=== PATIENT | male | born 1980 | race Caucasian/White ===

== ENCOUNTER 2017-12-12 11:00 | Inpatient (IN) | payer OTHER ==
--- NOTE | 2017-12-12 11:19 | PDOC ---
History of Present Illness - General Stated Complaint: CHEST PAIN Time Seen by Provider: 12/12/17 11:08 History Source: Patient - History of Present Illness Presenting Symptoms: Chest Pain Past History - Past Medical History Allergies/Adverse Reactions: Allergies Allergy/AdvReac Type Severity Reaction Status Date / Time aspirin Allergy Verified 12/12/17 11:28 Review of Systems - Review of Systems Constitutional: No: Fever Respiratory: No: Cough, Shortness of Breath Cardiac (ROS): Yes: Chest Pain. No: Lightheadedness, Palpitations, Syncope *Physical Exam - Vital Signs Last Vital Signs Temp Pulse Resp BP Pulse Ox 97.8 F 77 16 153/72 99 12/12/17 13:47 12/12/17 13:47 12/12/17 13:47 12/12/17 13:47 12/12/17 13:47 - Physical Exam General Appearance: Yes: Appropriately Dressed. No: Apparent Distress HEENT: positive: Normal Voice Neck: positive: Supple Respiratory/Chest: positive: Lungs Clear, Normal Breath Sounds. negative: Respiratory Distress Cardiovascular: positive: Regular Rate, S1, S2 Gastrointestinal/Abdominal: positive: Soft. negative: Tender Extremity: positive: Normal Inspection. negative: Pedal Edema Integumentary: positive: Dry, Warm Neurologic: positive: Fully Oriented, Alert, Normal Mood/Affect ED Treatment Course - LABORATORY CBC & Chemistry Diagram: 12/12/17 11:42 12/12/17 12:52 - ADDITIONAL ORDERS Additional order review: Laboratory Results 12/12/17 12/12/17 12/12/17 12:52 11:42 11:42 Sodium 133 L Cancelled Potassium 7.0 H* Cancelled Chloride 101 Cancelled Carbon Dioxide 23 Cancelled Anion Gap 9 Cancelled BUN 91 H Cancelled Creatinine 11.1 H* Cancelled Creat Clearance w eGFR 5.17 Cancelled Random Glucose 217 H Cancelled Calcium 9.2 Cancelled Total Bilirubin 0.4 Cancelled AST 25 Cancelled ALT 71 H Cancelled Alkaline Phosphatase 76 Cancelled Creatine Kinase 114 Cancelled Troponin I < 0.02 Cancelled B-Natriuretic Peptide 7529.6 H Total Protein 7.7 Cancelled Albumin 3.9 Cancelled 12/12/17 11:42 RBC 3.90 L MCV 95.1 MCHC 34.1 RDW 13.9 MPV 10.7 Neutrophils % 68.0 Lymphocytes % 21.5 Monocytes % 5.5 Eosinophils % 4.3 Basophils % 0.7 - RADIOLOGY Radiology Studies Ordered: Category Date Time Status CHEST X-RAY PORTABLE* [RAD] Stat Radiology 12/12/17 11:14 Completed - Medications Given in the ED: ED Medications Discontinued Medications Generic Name Dose Route Start Last Admin Trade Name Freq PRN Reason Stop Dose Admin Albuterol Sulfate 1 amp 12/12/17 13:56 12/12/17 14:24 Ventolin 0.083% Nebulizer Soln - NEB 12/12/17 13:57 1 amp NOW ONE Administration Calcium Gluconate 1,000 mg 12/12/17 13:52 12/12/17 14:23 Calcium Gluconate 10% - IVPUSH 12/12/17 13:53 1,000 mg ONCE ONE Administration Calcium Gluconate 1,000 mg 12/12/17 13:55 12/12/17 14:23 Calcium Gluconate 10% - IVPUSH 12/12/17 13:56 Not Given ONCE ONE Dextrose 25 gm 12/12/17 13:56 12/12/17 14:23 D50w (Vial) - IVPUSH 12/12/17 13:57 25 gm NOW ONE Administration Insulin Human Regular 6 units 12/12/17 13:52 12/12/17 14:23 Novolin R Vial *For Ivpush Or Iv Drip Only* IVPUSH 12/12/17 13:53 6 units ONCE ONE Administration Insulin Human Regular 10 units 12/12/17 13:56 12/12/17 14:24 Novolin R Vial *For Ivpush Or Iv Drip Only* IVPUSH 12/12/17 13:57 Not Given ONCE ONE Sodium Bicarbonate 50 meq 12/12/17 14:00 12/12/17 14:24 Sodium Bicarbonate 8.4% - IVPUSH 12/12/17 14:01 50 meq ONCE ONE Administration Medical Decision Making - Medical Decision Making 12/12/17 11:14 37-year-old male, IDDM, 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 Patient states while waiting for dialysis this morning developed left-sided, non-radiating chest pain, unable to describe, 8/10, constant, worse w/ deep inspiration, since improved. Denies shortness of breath, diaphoresis, nausea, vomiting, palpitations, leg pain and swelling. Patient states he used to get this same pain "many times" in the past but had negative w/u including stress testing. States he has not had pain over the past 6-7 years. See exam CP Recurrent Neg w/u in past, including stress test, per pt Since improved Not great story for ACS, less likely PE or dissection, no infectious sxs -ekg -cxr -labs -m/l can be discharged after 2 trops -will arrange HD 12/12/17 11:29 EKG w/ isolated TWI in lead aVL per d/w Dr Gay. Agrees to rule out patient with 2 tropes. Will contact [facility] to arrange hemodialysis 12/12/17 11:44 12/12/17 14:03 1st troponin negative. K of 7. Discussed with Dr. Taveras of renal who was currently in ED, recommends hyper-K cocktail except for Kayexalate with plan to dialyze patient stat. I microblogged hospitalist to make team aware 12/12/17 14:26 Pt admitted to hospitalist *DC/Admit/Observation/Transfer Diagnosis at time of Disposition: ESRD (end stage renal disease), Atypical chest pain, Hyperkalemia - Discharge Dispostion Condition at time of disposition: Good Decision to Admit order: Yes Decision to Admit order Date/Time: Decision to Admit Order Category Date Time Status Decision to Admit to Hospital Routine Admission 12/12/17 14:25 Active - Referrals Referrals: David Sigala MD [Primary Care Provider] - - Patient Instructions - Post Discharge Activity
[2017-12-12 11:35] VITALS: BMI 34.9
--- NOTE | 2017-12-12 11:45 | EKG ---
Test Reason : Blood Pressure : / mmHG Vent. Rate : 079 BPM Atrial Rate : 079 BPM P-R Int : 164 ms QRS Dur : 118 ms QT Int : 386 ms P-R-T Axes : 038 014 065 degrees QTc Int : 442 ms NORMAL SINUS RHYTHM POSSIBLE LEFT ATRIAL ENLARGEMENT INCOMPLETE LEFT BUNDLE BRANCH BLOCK BORDERLINE ECG NO PREVIOUS ECGS AVAILABLE Confirmed by Geoffrey Carrasco MD ([id number]) on 12/12/2017 11:44:59 AM Referred By: Confirmed By:Geoffrey Carrasco MD
[2017-12-12 11:48] LABS: BASO % 0.7 % (0-2.0); EOS % 4.3 % (0-4.5); HEMATOCRIT 37.1 % (35.4-49); HEMOGLOBIN 12.6 GM/dL (11.7-16.9); LYMPH % 21.5 % (8-40); MCH 32.4 pg (25.7-33.7); MCHC 34.1 g/dl (32.0-35.9); MEAN CELL VOLUME 95.1 fl (80-96); MEAN PLT VOLUME 10.7 fl (7.5-11.1); MONO % 5.5 % (3.8-10.2); PLATELET COUNT 230 K/MM3 (134-434); RDW 13.9 % (11.9-15.9)
--- NOTE | 2017-12-12 11:48 | PDOC ---
*Physical Exam - Physical Exam Comments: 12/12/17 11:48 Vitals as noted Alert, no acute distress, speaking full sentences Left eye glaucoma Heart is regular, 2/6 systolic ejection murmur Lungs are clear Abdomen benign Neurologically intact Heart Score/ECG Review - History History: Slightly suspicious - Electrocardiogram EKG: Non specific repolarization disturbance - Age Age: </= 45 - Risk Factors Based on the list above the patient has:: 1-2 risk factors - Troponin Troponin: </= normal limit - Score Heart Score - Total: 2 #1 ECG reviewed & interpreted by me at: 11:22 General ECG Interpretation: Sinus Rhythm, Normal Rate (79), Normal Intervals ( qtc 442, qrs 118 - borderline nonspecific intraventricular conduction delay), No acute ischemic changes (isolated TWI AVL) ED Treatment Course - LABORATORY CBC & Chemistry Diagram: 12/12/17 11:42 12/12/17 11:42 Medical Decision Making - Medical Decision Making 12/12/17 11:49 37-year-old male [facility] resident with end-stage renal disease on Monday//Monday dialysis presents for evaluation of chest pain at rest before dialysis this morning. Patient was in his usual state of health, while seated developed sudden onset of sharp left-sided chest pain that lasted for about an hour and then resolved, not associated with any palpitations or difficulty breathing. The long-term staff evaluated him and then referred him to the emergency department. He has had very similar episodes in the past, had negative workup including cardiac stress test. At baseline, he is physically active and ambulates comfortably throughout the long-term daily without chest pain or dyspnea. Atypical chest pain in a 37-year-old male with end-stage renal disease. Low risk heart score, EKG is not acutely ischemic, will check labs including troponin 2 Discuss with [facility] regarding rescheduling his dialysis, could return to [facility] if troponin negative 2 and remains asymptomatic. *DC/Admit/Observation/Transfer Diagnosis at time of Disposition: ESRD (end stage renal disease), Atypical chest pain - Discharge Dispostion Condition at time of disposition: Good - Referrals Referrals: David Sigala MD [Primary Care Provider] - - Patient Instructions - Post Discharge Activity
[2017-12-12 13:29] LABS: ALBUMIN 3.9 g/dl (3.4-5.0); ALK PHOS 76 U/L (45-117); ANION GAP 9 MMOL/L (8-16); BILIRUBIN,TOTAL 0.4 mg/dL (0.2-1); BLOOD UREA NITROGEN 91 mg/dL (7-18); CALCIUM 9.2 mg/dL (8.5-10.1); CHLORIDE 101 mmol/L (98-107); CO2 23 mmol/L (21-32); GLUCOSE,RANDOM 217 mg/dL (74-106); SGOT/AST 25 U/L (15-37); SGPT/ALT 71 U/L (13-61); SODIUM 133 mmol/L (136-145); TOT PROT 7.7 g/dl (6.4-8.2)
[2017-12-12 13:47] LABS: CREATININE 11.1 mg/dL (0.55-1.3)
[2017-12-12] MEDS ORDERED: CALCIUM GLUCONATE 10% - 1,000 MG/10 ML VIAL IVPUSH ONE ×2 (13:52→13:55)
[2017-12-12] MEDS ORDERED: INSULIN REGULAR HUMAN 100 UNITS/ML *VIAL IVPUSH ONE ×2 (13:52→13:56)
[2017-12-12] MEDS ORDERED: ALBUTEROL SO4 0.083% IH SOL 2.5 MG/3 ML VIAL.NEB. NEB ONE ×2 (13:56→14:02)
[2017-12-12] MEDS ORDERED: DEXTROSE 50%-WATER - 25 GM/50 ML VIAL IVPUSH ONE (13:56)
[2017-12-12] MEDS ORDERED: SODIUM BICARBONATE 8.4% 50 MEQ/50 ML DISP.SYRIN IVPUSH ONE (14:00)
[2017-12-12] MEDS ORDERED: SODIUM BICARBONATE 8.4% 50 MEQ/50 ML VIAL ONE (14:03)
[2017-12-12] MEDS ORDERED: CALCIUM GLUCONATE 10% - 1,000 MG/10 ML VIAL ONE (14:03)
[2017-12-12] MEDS ORDERED: DEXTROSE 50%-WATER 25 GM/50 ML DISP.SYRIN ONE (14:03)
[2017-12-12] MEDS ORDERED: INSULIN REGULAR HUMAN 100 UNITS/ML *VIAL ONE (14:04)
--- NOTE | 2017-12-12 14:16 | HP ---
<Florencio Briseno - Last Filed: 12/12/17 16:05> CHIEF COMPLAINT:Chest Pain HISTORY OF PRESENT ILLNESS: 37M with history of HTN, DM, ESRD on HD T//Mon, left eye blindness, presents to the ER from detention with chest pain. Patient states he was in the waiting room about to get dialysis and he was talking to the at risk specialist about his hyperkalemia and all of a sudden he started having left sided chest pain. He endorses the pain did not radiate anywhere and he was not diaphoretic. He states it is worse when he takes a deep breath and at the peak of inspiration. Endorses he used to have pain like this but its been many years since he's had chest pain like this. He states he had a work up with a stress test about 8 years ago and it was a negative work up. Patient's mother of an KS at 39 years old. He denies nausea vomiting fever chills or shortness of breath. Currently endorses CP only at the peak of inspiration. Noted to have potassium of 7 in ER and nephrology, Dr. Taversa, Consulted. Paatient to get emergent dialysis. ER course was notable for: (1)Labs (2)CXR (3)Hyperkalemia cocktail nephrology consult Recent Travel:Denies PAST MEDICAL HISTORY:As above, Left eye retinal detachment, right eye retinal hemorrhages from DM, Congential murmur, ?cardiomyopathy PAST SURGICAL HISTORY:Right arm AV fistula, multiple eye procedures Social History: Smoking:Denies Alcohol:Denies Drugs: Denies Family History:Mother of [place] at age 39 Allergies aspirin Allergy (Verified 12/12/17 11:28) Home Medication List Medication Instructions Recorded Confirmed Type Acetaminophen [Tylenol] 650 mg PO Q6H PRN 12/12/17 12/12/17 History Amlodipine Besylate 10 mg PO DAILY 12/12/17 12/12/17 History Brimonidine Tartrate [Alphagan 1 drop OD TID 12/12/17 12/12/17 History 0.2% -] Calcium Acetate 1 cap PO TID 12/12/17 12/12/17 History Gabapentin 1 cap PO HS 12/12/17 12/12/17 History Hydralazine HCl 20 mg PO Q8H 12/12/17 12/12/17 History Insulin Lispro [Humalog] See Protocol SQ BID 12/12/17 12/12/17 History Latanoprost 0.005% Eye Drops 1 drop OD HS 12/12/17 12/12/17 History [Xalatan 0.005% Eye Drops -] Lisinopril 5 mg PO DAILY 12/12/17 12/12/17 History Polyvinyl Alcohol [Artificial 1 drop OS TID 12/12/17 12/12/17 History Tears] Sertraline HCl 25 mg PO DAILY 12/12/17 12/12/17 History Vitamin B Comp W-C [Nephro-Gracie -] 1 tab PO DAILY 12/12/17 12/12/17 History Active Medications Generic Name Dose Route Start Last Admin Trade Name Freq PRN Reason Stop Dose Admin Amlodipine Besylate 10 mg 12/13/17 10:00 Norvasc - PO DAILY FOR[facility]LY [facility], [facility]–1983 Artificial Tears 1 drop 12/12/17 22:00 Artificial Tears OS TID [facility], [facility]1983 Brimonidine Tartrate 1 drop 12/12/17 22:00 Alphagan 0.2% - OD TID [facility], [facility]1983 Calcium Acetate mg 12/12/17 22:00 Phoslo - PO TID GHAZALA Gabapentin mg 12/12/17 22:00 Neurontin - PO HS [facility], 1928–1983 Heparin Sodium (Porcine) 5,000 unit 12/12/17 18:00 Heparin - SQ Q8H-IV [facility], [facility]1983 Hydralazine HCl 20 mg 12/12/17 15:30 Apresoline - PO Q8H [facility], [facility]1983 Insulin Aspart 1 vial 12/12/17 16:30 Novolog Vial Sliding Scale - SQ TIDAC [facility], [facility]1983 Protocol Latanoprost 1 drop 12/12/17 22:00 Xalatan 0.005% Eye Drops - OD HS [facility], [facility]1983 Lisinopril 5 mg 12/13/17 10:00 Prinivil PO DAILY [facility], [facility]1983 Multivit/Ca Carb/B Cmplx/FA/Prenat 1 tablet 12/13/17 10:00 Nephro-Gracie - PO DAILY [facility], [facility]1983 Sertraline HCl 25 mg 12/13/17 10:00 Zoloft - PO DAILY [facility] HOME MEDICATIONS: REVIEW OF SYSTEMS CONSTITUTIONAL: Absent: fever, chills, diaphoresis, generalized weakness, malaise, loss of appetite, weight change HEENT: Absent: rhinorrhea, nasal congestion, throat pain, throat swelling, difficulty swallowing, mouth swelling, ear pain, eye pain, visual changes CARDIOVASCULAR: Absent: syncope, palpitations, irregular heart rate, lightheadedness, peripheral edema Present:chest pain, shortness of breath RESPIRATORY: Absent: cough, dyspnea with exertion, orthopnea, wheezing, stridor, hemoptysis Present:shortness of breath GASTROINTESTINAL: Absent: abdominal pain, abdominal distension, nausea, vomiting, diarrhea, constipation, melena, hematochezia GENITOURINARY: Absent: dysuria, frequency, urgency, hesitancy, hematuria, flank pain, genital pain MUSCULOSKELETAL: Absent: myalgia, arthralgia, joint swelling, back pain, neck pain SKIN: Absent: rash, itching, pallor HEMATOLOGIC/IMMUNOLOGIC: Absent: easy bleeding, easy bruising, lymphadenopathy, frequent infections ENDOCRINE: Absent: unexplained weight gain, unexplained weight loss, heat intolerance, cold intolerance NEUROLOGIC: Absent: headache, focal weakness or paresthesias, dizziness, unsteady gait, seizure, mental status changes, bladder or bowel incontinence PSYCHIATRIC: Absent: anxiety, depression, suicidal or homicidal ideation, hallucinations. PHYSICAL EXAMINATION Vital Signs - 24 hr 12/12/17 12/12/17 12/12/17 11:28 11:53 13:47 Temperature 98.1 F 97.8 F Pulse Rate 79 80 Pulse Rate [ 77 Apical] Respiratory 18 16 Rate Blood Pressure 164/85 Blood Pressure 153/72 [Left Arm] O2 Sat by Pulse 98 99 99 Oximetry (%) GENERAL: Awake, alert, and fully oriented, in no acute distress. HEAD: Normal with no signs of trauma. EYES: difficult to visualize optic discs bilaterally EARS, NOSE, THROAT: Moist mucous membranes. NECK: supple without JVD LUNGS: Breath sounds equal, clear to auscultation bilaterally. No wheezes, and no crackles. No accessory muscle use. HEART: Tachycardic, 3/6 systolic murmur best heard at RUSB with radiation to carotids. ABDOMEN: Soft, nontender, not distended, normoactive bowel sounds MUSCULOSKELETAL: Normal range of motion at all joints. No CVA tenderness. UPPER EXTREMITIES: 2+ pulses, warm, well-perfused. No cyanosis. No clubbing. No peripheral edema. LOWER EXTREMITIES: warm, well-perfused. No calf tenderness. No peripheral edema. NEUROLOGICAL: Cranial nerves II-XII grossly intact. global muscle strength 5/ 5. Sensation intact. PSYCHIATRIC: Cooperative. Good eye contact. Appropriate mood and affect. SKIN: Warm, dry, normal turgor Laboratory Results - last 24 hr 12/12/17 12/12/17 12/12/17 11:42 11:42 11:42 WBC 5.0 RBC 3.90 L Hgb 12.6 Hct 37.1 MCV 95.1 MCH 32.4 MCHC 34.1 RDW 13.9 Plt Count 230 MPV 10.7 Absolute Neuts (auto) 3.4 Neutrophils % 68.0 Lymphocytes % 21.5 Monocytes % 5.5 Eosinophils % 4.3 Basophils % 0.7 Nucleated RBC % 0 Platelet Comment No clumping noted Sodium Cancelled Potassium Cancelled Chloride Cancelled Carbon Dioxide Cancelled Anion Gap Cancelled BUN Cancelled Creatinine Cancelled Creat Clearance w eGFR Cancelled Random Glucose Cancelled Calcium Cancelled Total Bilirubin Cancelled AST Cancelled ALT Cancelled Alkaline Phosphatase Cancelled Creatine Kinase Cancelled Troponin I Cancelled B-Natriuretic Peptide 7529.6 H Total Protein Cancelled Albumin Cancelled 12/12/17 12:52 WBC RBC Hgb Hct MCV MCH MCHC RDW Plt Count MPV Absolute Neuts (auto) Neutrophils % Lymphocytes % Monocytes % Eosinophils % Basophils % Nucleated RBC % Platelet Comment Sodium 133 L Potassium 7.0 H* Chloride 101 Carbon Dioxide 23 Anion Gap 9 BUN 91 H Creatinine 11.1 H* Creat Clearance w eGFR 5.17 Random Glucose 217 H Calcium 9.2 Total Bilirubin 0.4 AST 25 ALT 71 H Alkaline Phosphatase 76 Creatine Kinase 114 Troponin I < 0.02 B-Natriuretic Peptide Total Protein 7.7 Albumin 3.9 EKG: NSR inverted T wave in aVL no prior EKG available for comparison CXR: Water bottle shaped heart. No acute pathology ASSESSMENT/PLAN: 37M with multiple medical problems presents with chest pain and hyperkalemia: Hyperkalemia: Patient states he has not changed his diet Given Cocktail for hyperkalemia in ER Not given Kayexolate per nephrology Will get dialysis repeat BMP in AM ESRD: Renally dose all meds Nephrology consult emergency dialysis now Chest pain: R/o ACS Low suspicion for ACS but patient has risk factors and concenring history given early cardiac in his mom at 37yo Justa Scan Trend toponins continuos cardiac monitoring Echo Lipid panel Systolic Murmur: Echo ordered DM: BGM ACHS ISS TIDAC Check HbA1c HTN: Restart home dose of lisinopril 5mg po daily restart hydralazine 20mg po q8h Restart Norvasc 10mg po daily FEN: no IVF Hyperkalemia: See plan above diabetic diet PPx: HSQ/SCDs Early ambulation to avoid deconditioning Full Code Case discussed with Dr. Bhagat Visit type - Emergency Visit Emergency Visit: Yes ED Registration Date: 12/12/17 Care time: The patient presented to the Emergency Department on the above date and was hospitalized for further evaluation of their emergent condition. - New Patient This patient is new to me today: Yes Date on this admission: 12/12/17 - Critical Care Critical Care patient: No <Abram Bhagat - Last Filed: 12/12/17 18:00> CHIEF COMPLAINT: PCP: HISTORY OF PRESENT ILLNESS: ER course was notable for: (1) (2) (3) Recent Travel: PAST MEDICAL HISTORY: PAST SURGICAL HISTORY: Social History: Smoking: Alcohol: Drugs: Family History: Allergies aspirin Allergy (Verified 12/12/17 11:28) HOME MEDICATIONS: Home Medications Medication Instructions Recorded Acetaminophen [Tylenol] 650 mg PO Q6H PRN 12/12/17 Amlodipine Besylate 10 mg PO DAILY 12/12/17 Brimonidine Tartrate [Alphagan 1 drop OD TID 12/12/17 0.2% -] Calcium Acetate 1 cap PO TID 12/12/17 Gabapentin 1 cap PO HS 12/12/17 Hydralazine HCl 20 mg PO Q8H 12/12/17 Insulin Lispro [Humalog] See Protocol SQ BID 12/12/17 Latanoprost 0.005% Eye Drops 1 drop OD HS 12/12/17 [Xalatan 0.005% Eye Drops -] Lisinopril 5 mg PO DAILY 12/12/17 Polyvinyl Alcohol [Artificial 1 drop OS TID 12/12/17 Tears] Sertraline HCl 25 mg PO DAILY 12/12/17 Vitamin B Comp W-C [Nephro-Gracie -] 1 tab PO DAILY 12/12/17 REVIEW OF SYSTEMS CONSTITUTIONAL: Absent: fever, chills, diaphoresis, generalized weakness, malaise, loss of appetite, weight change HEENT: Absent: rhinorrhea, nasal congestion, throat pain, throat swelling, difficulty swallowing, mouth swelling, ear pain, eye pain, visual changes CARDIOVASCULAR: Absent: chest pain, syncope, palpitations, irregular heart rate, lightheadedness , peripheral edema RESPIRATORY: Absent: cough, shortness of breath, dyspnea with exertion, orthopnea, wheezing, stridor, hemoptysis GASTROINTESTINAL: Absent: abdominal pain, abdominal distension, nausea, vomiting, diarrhea, constipation, melena, hematochezia GENITOURINARY: Absent: dysuria, frequency, urgency, hesitancy, hematuria, flank pain, genital pain MUSCULOSKELETAL: Absent: myalgia, arthralgia, joint swelling, back pain, neck pain SKIN: Absent: rash, itching, pallor HEMATOLOGIC/IMMUNOLOGIC: Absent: easy bleeding, easy bruising, lymphadenopathy, frequent infections ENDOCRINE: Absent: unexplained weight gain, unexplained weight loss, heat intolerance, cold intolerance NEUROLOGIC: Absent: headache, focal weakness or paresthesias, dizziness, unsteady gait, seizure, mental status changes, bladder or bowel incontinence PSYCHIATRIC: Absent: anxiety, depression, suicidal or homicidal ideation, hallucinations. PHYSICAL EXAMINATION Vital Signs - 24 hr 12/12/17 12/12/17 12/12/17 11:28 11:53 13:47 Temperature 98.1 F 97.8 F Pulse Rate 79 80 Pulse Rate [ 77 Apical] Respiratory 18 16 Rate Blood Pressure 164/85 Blood Pressure 153/72 [Left Arm] O2 Sat by Pulse 98 99 99 Oximetry (%) 12/12/17 15:46 Temperature 98.5 F Pulse Rate Pulse Rate [ 104 H Apical] Respiratory 16 Rate Blood Pressure Blood Pressure 146/66 [Left Arm] O2 Sat by Pulse 99 Oximetry (%) GENERAL: Awake, alert, and fully oriented, in no acute distress. HEAD: Normal with no signs of trauma. EYES: Pupils equal, round and reactive to light, extraocular movements intact, sclera anicteric, conjunctiva clear. No lid lag. EARS, NOSE, THROAT: Ears normal, nares patent, oropharynx clear without exudates. Moist mucous membranes. NECK: Normal range of motion, supple without lymphadenopathy, JVD, or masses. LUNGS: Breath sounds equal, clear to auscultation bilaterally. No wheezes, and no crackles. No accessory muscle use. HEART: Regular rate and rhythm, normal S1 and S2 without murmur, rub or gallop. ABDOMEN: Soft, nontender, not distended, normoactive bowel sounds, no guarding, no rebound, no masses. No hepatomegaly or splenomegaly. MUSCULOSKELETAL: Normal range of motion at all joints. No bony deformities or tenderness. No CVA tenderness. UPPER EXTREMITIES: 2+ pulses, warm, well-perfused. No cyanosis. No clubbing. No peripheral edema. LOWER EXTREMITIES: 2+ pulses, warm, well-perfused. No calf tenderness. No peripheral edema. NEUROLOGICAL: Cranial nerves II-XII intact. Normal speech. Normal gait. PSYCHIATRIC: Cooperative. Good eye contact. Appropriate mood and affect. SKIN: Warm, dry, normal turgor, no rashes or lesions noted, normal capillary refill. Laboratory Results - last 24 hr 12/12/17 12/12/17 12/12/17 11:42 11:42 11:42 WBC 5.0 RBC 3.90 L Hgb 12.6 Hct 37.1 MCV 95.1 MCH 32.4 MCHC 34.1 RDW 13.9 Plt Count 230 MPV 10.7 Absolute Neuts (auto) 3.4 Neutrophils % 68.0 Lymphocytes % 21.5 Monocytes % 5.5 Eosinophils % 4.3 Basophils % 0.7 Nucleated RBC % 0 Platelet Comment No clumping noted Sodium Cancelled Potassium Cancelled Chloride Cancelled Carbon Dioxide Cancelled Anion Gap Cancelled BUN Cancelled Creatinine Cancelled Creat Clearance w eGFR Cancelled Random Glucose Cancelled Calcium Cancelled Total Bilirubin Cancelled AST Cancelled ALT Cancelled Alkaline Phosphatase Cancelled Creatine Kinase Cancelled Troponin I Cancelled B-Natriuretic Peptide 7529.6 H Total Protein Cancelled Albumin Cancelled 12/12/17 12:52 WBC RBC Hgb Hct MCV MCH MCHC RDW Plt Count MPV Absolute Neuts (auto) Neutrophils % Lymphocytes % Monocytes % Eosinophils % Basophils % Nucleated RBC % Platelet Comment Sodium 133 L Potassium 7.0 H* Chloride 101 Carbon Dioxide 23 Anion Gap 9 BUN 91 H Creatinine 11.1 H* Creat Clearance w eGFR 5.17 Random Glucose 217 H Calcium 9.2 Total Bilirubin 0.4 AST 25 ALT 71 H Alkaline Phosphatase 76 Creatine Kinase 114 Troponin I < 0.02 B-Natriuretic Peptide Total Protein 7.7 Albumin 3.9 ASSESSMENT/PLAN: Seen and examined with resident; please see my note for additional documentation
--- NOTE | 2017-12-12 14:59 | PN ---
Teaching Attending Note Name of Resident: Florencio Briseno ATTENDING PHYSICIAN STATEMENT I saw and evaluated the patient. I reviewed the resident's note and discussed the case with the resident. I agree with the resident's findings and plan as documented. SUBJECTIVE: Pt. is a 37 y/o HM with a PMH as documented; he presents to the ER with a CC of chest pain and anxiety at his HD center. He hasn't had CP like this 'for years, ' though he has had similar pain 8 years ago when he had a negative CV workup ( states had stress, etc. at that juncture). Unsure of last echocardiogram date. He has multiple RFs for CV disease including ESRD, DM, HTN, obesity, family h/o premature CV (mother of ND at 39 y/o). He was aparently hyperkalemic at HD but that value is unknown; he had a K of 7 here. Was given protocol in the ER. He had no associated EKG changes. Globular heart on CXR. Nephrology consulted by ER for STAT HD. He will be admitted to the medicine service with nephro consultation for stat HD ROS: 10 sys ROS done and was negative aside from what was indicated above PMH: As documented, but briefly ESRD, IDDM II, HTN, Blindness PSH: Fistula insertion, no thoracic procedures SOC: NH resident, compliant with HD OBJECTIVE: Gen: AAOx3, well nourshed CV: Slightly tachy, III/IV systolic murmur heard at b/l SB, good capilary refill. No JVD. Lungs: CTAB with sym expansion GI: Soft, nondistended, nontender, no HSM Psych: slightly anxious affect with normal cognition and moderate insight. Competent to make medical decisions Neuro: CN2-12 grossly intact, moves all 4 extremities without distortion to sensorium. Ext: No edema, scattered tattoos, LUE AVF with good thrill. ASSESSMENT AND PLAN: 1) Hyperkalemia -2/2 ESRD, no diet changes, etc. He will have stat HD and we will trend potassium. -Defer further management to nephrology; appreciate input. 2) Chest Pain -Given risk factors, etc. will go ahead and obtain Nuclear stress test ( blindness, etc. makes treadmill poor option). ASA allergy should be explored. We will go ahead and consult CV if needed. Trend trops, monitor tele. HEART score is 4 putting him at moderate risk (MACE risk 12-16.6%) with last CV workup nearly 10 years ago. 3) Anxiety -Recommend outpatient FU 4) IDDM -SSI while inpatient -Close followup with PCP to taper home regimine 5) HTN -Keep <160 SBP while inpatient; continue home meds and use PRNs 6) ESRD -Cause of Hyperkalemia; managed by nephrology -Monitor weights, BMP Full Code DVT px heparin GI px: not indicated' Anticipated DC pending on results of stress test and satisfactory resolution of hyperkalemia.
[2017-12-12] MEDS ORDERED: HEPARIN NA (PORCINE) 5,000 UNITS/ML 1ML VIAL IVPUSH ONE (15:54)
[2017-12-12] MEDS ORDERED: SODIUM CHLORIDE 250 ML IV PRN (15:54)
--- NOTE | 2017-12-12 15:54 | CONSULT ---
Consult Consult Specialty:: Nephrology Reason for Consultation:: ESRD - History of Present Illness Chief Complaint: chest pain History of Present Illness: Pt is a 37 year old male with pmhx of ESRD, DM, left eye blindness, and heart murmur who presents to the ER with chest pain. He says pain was left sided. He currently denies pain. The pain however is reproducible with palpation. He is on a TTS scheduled and is due for HD today. He did not get dialysis. He was found to be hyperkalemic. He denies palpitations. He says that he has history of hyperkalemia. He gets HD at [facility]. - History Source History Provided By: Patient - Past Medical History Cardio/Vascular: Yes: HTN Renal/: Yes: Renal Failure, Renal Inusuff, Hemodialysis Endocrine: Yes: Diabetes Mellitus - Past Surgical History Past Surgical History: Yes: AV Fistula/Graft - Alcohol/Substance Use Hx Alcohol Use: No - Smoking History Smoking history: Never smoked Home Medications - Allergies Allergies/Adverse Reactions: Allergies Allergy/AdvReac Type Severity Reaction Status Date / Time aspirin Allergy Verified 12/12/17 11:28 - Home Medications Home Medications: Ambulatory Orders Acetaminophen [Tylenol] 650 mg PO Q6H PRN 12/12/17 Amlodipine Besylate 10 mg PO DAILY 12/12/17 Brimonidine Tartrate [Alphagan 0.2% -] 1 drop OD TID 12/12/17 Calcium Acetate 1 cap PO TID 12/12/17 Gabapentin 1 cap PO HS 12/12/17 Hydralazine HCl 20 mg PO Q8H 12/12/17 Insulin Lispro [Humalog] See Protocol SQ BID 12/12/17 Latanoprost 0.005% Eye Drops [Xalatan 0.005% Eye Drops -] 1 drop OD HS 12/12/17 Lisinopril 5 mg PO DAILY 12/12/17 Polyvinyl Alcohol [Artificial Tears] 1 drop OS TID 12/12/17 Sertraline HCl 25 mg PO DAILY 12/12/17 Vitamin B Comp W-C [Nephro-Gracie -] 1 tab PO DAILY 12/12/17 Family Disease History - Family Disease History Other Family History: family hx of DM Review of Systems - Review of Systems Constitutional: reports: No Symptoms Eyes: reports: No Symptoms HENT: reports: No Symptoms Neck: reports: No Symptoms Cardiovascular: reports: Chest Pain Respiratory: reports: No Symptoms Gastrointestinal: reports: No Symptoms Genitourinary: reports: No Symptoms Musculoskeletal: reports: No Symptoms Integumentary: reports: No Symptoms Neurological: reports: No Symptoms Endocrine: reports: No Symptoms Hematology/Lymphatic: reports: No Symptoms Psychiatric: reports: No Symptoms Physical Exam Vital Signs: Vital Signs Temperature 98.5 F 12/12/17 15:46 Pulse Rate 104 H 12/12/17 15:46 Respiratory Rate 16 12/12/17 15:46 Blood Pressure 146/66 12/12/17 15:46 O2 Sat by Pulse Oximetry (%) 99 12/12/17 15:46 Constitutional: Yes: Calm Eyes: Yes: Other (left eye blind) Cardiovascular: Yes: S1, S2, Other (pain on palpation of anterior chest wall) Respiratory: Yes: CTA Bilaterally Gastrointestinal: Yes: Soft Renal/: Yes: WNL Musculoskeletal: Yes: WNL Edema: No Integumentary: Yes: Tattoos Neurological: Yes: Oriented Psychiatric: Yes: Oriented Labs: CBC, BMP 12/12/17 11:42 12/12/17 12:52 Laboratory Tests 12/12/17 12/12/17 12/12/17 11:42 11:42 12:52 WBC 5.0 Hgb 12.6 Sodium 133 L Potassium 7.0 H* Chloride 101 BUN 91 H Creatinine 11.1 H* B-Natriuretic Peptide 7529.6 H Imaging - Results Chest X-ray: Report Reviewed Problem List - Problems (1) Atypical chest pain Code(s): R07.89 - OTHER CHEST PAIN (2) Diabetes Code(s): E11.9 - TYPE 2 DIABETES MELLITUS WITHOUT COMPLICATIONS (3) ESRD (end stage renal disease) Code(s): N18.6 - END STAGE RENAL DISEASE (4) HTN (hypertension) Code(s): I10 - ESSENTIAL (PRIMARY) HYPERTENSION (5) Hyperkalemia Code(s): E87.5 - HYPERKALEMIA Assessment/Plan Current Medications Generic Name Dose Route Start Last Admin Trade Name Freq PRN Reason Stop Dose Admin Amlodipine Besylate 10 mg 12/13/17 10:00 Norvasc - PO DAILY GHAZALA Artificial Tears 1 drop 12/12/17 22:00 Artificial Tears OS TID GHAZALA Brimonidine Tartrate 1 drop 12/12/17 22:00 Alphagan 0.2% - OD TID GHAZALA Calcium Acetate mg 12/12/17 22:00 Phoslo - PO TID GHAZALA Gabapentin mg 12/12/17 22:00 Neurontin - PO HS [facility] Heparin Sodium (Porcine) 5,000 unit 12/12/17 18:00 Heparin - SQ Q8H-IV GHAZALA Hydralazine HCl 20 mg 12/12/17 15:30 Apresoline - PO Q8H [facility] Insulin Aspart 1 vial 12/12/17 16:30 Novolog Vial Sliding Scale - SQ TIDAC [facility] Protocol Latanoprost 1 drop 12/12/17 22:00 Xalatan 0.005% Eye Drops - OD HS [facility] Lisinopril 5 mg 12/13/17 10:00 Prinivil PO DAILY [facility] Multivit/Ca Carb/B Cmplx/FA/Prenat 1 tablet 12/13/17 10:00 Nephro-Gracie - PO DAILY [facility] Sertraline HCl 25 mg 12/13/17 10:00 Zoloft - PO DAILY [facility] Impression 1. ESRD 2. hyperkalemia 3. DM 4. HTN 5. chest pain 6. left eye blindness Plan - will arrange for HD for hyperkalemia, pending placement in tele bed - insulin, d50, calcium gluconate and albuterol given - renal diet - resume home meds - cardiac workup - discussed with ER and with primary team - will follow Dr Taveras
[2017-12-12] MEDS: HEPARIN NA (PORCINE) 5,000 UNITS/ML 1ML VIAL IVPUSH SCH ×2 (18:25)
[2017-12-12] MEDS: hydrALAZINE HCL 10 MG TABLET PO SCH ×2 (18:31→22:13)
[2017-12-12] MEDS: INSULIN SLIDING SCALE (NOVOLOG) 1 VIAL SQ SCH (18:34)
[2017-12-12] MEDS: CALCIUM ACETATE 667 MG CAPSULE (FP) PO SCH (18:35)
[2017-12-12 20:14] LABS: ANION GAP 13 MMOL/L (8-16); BLOOD UREA NITROGEN 58 mg/dL (7-18); CALCIUM 9.3 mg/dL (8.5-10.1); CHLORIDE 106 mmol/L (98-107); CO2 24 mmol/L (21-32); GLUCOSE,RANDOM 256 mg/dL (74-106); POTASSIUM 4.2 mmol/L (3.5-5.1); SODIUM 143 mmol/L (136-145)
[2017-12-12 20:21] LABS: CREATININE 7.6 mg/dL (0.55-1.3)
--- NOTE | 2017-12-12 21:52 | PN ---
Progress Note (short form) - Note Progress Note: Laboratory Tests 12/12/17 18:00 Sodium 143 Potassium 4.2 Anion Gap 13 Creatinine 7.6 H* Post HD potassium improved. Problem List - Problems (1) Atypical chest pain Code(s): R07.89 - OTHER CHEST PAIN (2) Diabetes Code(s): E11.9 - TYPE 2 DIABETES MELLITUS WITHOUT COMPLICATIONS (3) ESRD (end stage renal disease) Code(s): N18.6 - END STAGE RENAL DISEASE (4) HTN (hypertension) Code(s): I10 - ESSENTIAL (PRIMARY) HYPERTENSION (5) Hyperkalemia Code(s): E87.5 - HYPERKALEMIA
[2017-12-12] MEDS: BRIMONIDINE TARTRATE 0.2% OPHTHALMIC 5 ML BOTTLE OD SCH (21:55)
[2017-12-12] MEDS: ARTIFICIAL TEARS (POLYVINYL ALCOHOL) OPTH DROPS OS SCH (21:55)
[2017-12-12] MEDS: HEPARIN NA (PORCINE) 5,000 UNITS/ML 1ML VIAL SQ SCH (22:13)
[2017-12-12] MEDS: LATANOPROST 0.005% OPHTH SOLN 2.5ML BOTTLE OD SCH (22:13)
[2017-12-12] MEDS: GABAPENTIN 300 MG CAPSULE (FP) PO SCH (22:13)
[2017-12-13] MEDS: BRIMONIDINE TARTRATE 0.2% OPHTHALMIC 5 ML BOTTLE OD SCH ×3 (05:42→21:37)
[2017-12-13] MEDS: HEPARIN NA (PORCINE) 5,000 UNITS/ML 1ML VIAL SQ SCH ×3 (05:42→21:38)
[2017-12-13] MEDS: ARTIFICIAL TEARS (POLYVINYL ALCOHOL) OPTH DROPS OS SCH ×3 (05:42→21:38)
[2017-12-13] MEDS: hydrALAZINE HCL 10 MG TABLET PO SCH ×3 (05:42→21:38)
[2017-12-13] MEDS: INSULIN SLIDING SCALE (NOVOLOG) 1 VIAL SQ SCH ×3 (06:13→18:08)
[2017-12-13 06:51] LABS: HEMATOCRIT 32.6 % (35.4-49); MCH 32.1 pg (25.7-33.7); MCHC 33.9 g/dl (32.0-35.9); MEAN CELL VOLUME 94.8 fl (80-96); MEAN PLT VOLUME 8.9 fl (7.5-11.1); PLATELET COUNT 145 K/MM3 (134-434); RBC 3.43 M/mm3 (4.00-5.60); RDW 14.1 % (11.9-15.9)
[2017-12-13 08:53] LABS: ANION GAP 8 MMOL/L (8-16); BLOOD UREA NITROGEN 44 mg/dL (7-18); CALCIUM 8.6 mg/dL (8.5-10.1); CHLORIDE 104 mmol/L (98-107); CHOLESTEROL 137 mg/dL (50-200); CO2 31 mmol/L (21-32); CREATININE 7.3 mg/dL (0.55-1.3); GLUCOSE,RANDOM 149 mg/dL (74-106); HDL CHOLESTEROL 40 mg/dL (40-60); MAGNESIUM 2.2 mg/dL (1.8-2.4); PHOSPHOROUS 4.4 mg/dL (2.5-4.9); POTASSIUM 4.9 mmol/L (3.5-5.1); SODIUM 144 mmol/L (136-145); TRIGLYCERIDES 98 mg/dL (0-150)
--- NOTE | 2017-12-13 10:07 | ECHO ---
Version: 1 Name: NERISSA CHILDERS Exam: Adult Echocardiogram Study Date: 12/13/2017, 7:21 AM Age: 37 Years MMode/2D Measurements & Calculations IVSd: 1.39 cm LVIDs: 3.4 cm LVIDd: 5.3 cm LVPWd: 1.76 cm LAV (MOD-bp): 70.0 ml Ao root diam: 3.0 cm LA dimension: 4.3 cm Doppler Measurements & Calculations MV E max grant: 146.0 cm/sec Med E/e': 26.3 MV A max grant: 74.7 cm/sec Med Peak E' Grant: 5.5 cm/sec MV E/A: 1.96 Lat E/e': 22.0 Lat Peak E' Grant: 6.6 cm/sec MR max P.0 mmHg AI P1/2t: 337.0 msec TR max grant: 254.4 cm/sec TR max P.3 mmHg Procedure A two-dimensional transthoracic echocardiogram with color flow and Doppler was performed. Left Ventricle There is moderate concentric left ventricular hypertrophy. The left ventricular ejection fraction is normal. The left ventricular wall motion is normal. Right Ventricle The right ventricle is normal in size and function. Atria The left atrium is moderately dilated. The right atrium is moderately dilated. Mitral Valve There is mild mitral valve thickening. There is no mitral valve stenosis. There is moderate to sever e mitral regurgitation. Tricuspid Valve There is mild tricuspid valve thickening. There is no tricuspid stenosis. There is moderate tricuspi d regurgitation. Right ventricular systolic pressure is elevated at 30-40mmHg. Aortic Valve The aortic valve is normal in structure and function. No hemodynamically significant valvular aortic stenosis. Mild to moderate aortic regurgitation. Pulmonic Valve The pulmonic valve is not well visualized. There is no pulmonic valvular stenosis. Mild pulmonic stella vular regurgitation. Pericardium/Pleura There is no pericardial effusion. Summary Statements There is moderate concentric left ventricular hypertrophy. The left ventricular ejection fraction is normal. The left ventricular wall motion is normal. There is mild mitral valve thickening. There is moderate to severe mitral regurgitation. The left atrium is moderately dilated. The right atrium is moderately dilated. There is moderate tricuspid regurgitation. Mild to moderate aortic regurgitation. Right ventricular systolic pressure is elevated at 30-40mmHg. MD Cullen Flores 12/13/2017, 10:07 AM Ordering Physician: Florencio Briseno Referring Physician: Min Camacho Performed By: Rebecca Vang
[2017-12-13] MEDS: CALCIUM ACETATE 667 MG CAPSULE (FP) PO SCH ×3 (12:00→18:08)
[2017-12-13] MEDS ORDERED: SODIUM CHLORIDE 250 ML IV PRN (12:41)
--- NOTE | 2017-12-13 12:41 | PN ---
Progress Note, Physician History of Present Illness: Pt seen and examined at bedside. He is awake and alert. He denies chest pain. He tolerated HD yesterday. - Current Medication List Current Medications: Active Medications Amlodipine Besylate (Norvasc -) 10 mg PO DAILY [facility] Artificial Tears (Artificial Tears) 1 drop OS TID [facility] Last Admin: 12/13/17 05:42 Dose: 1 drop Brimonidine Tartrate (Alphagan 0.2% -) 1 drop OD TID [facility] Last Admin: 12/13/17 05:42 Dose: 1 drop Calcium Acetate (Phoslo -) 667 mg PO TIDCM [facility] Last Admin: 12/12/17 18:35 Dose: 667 mg Gabapentin (Neurontin -) 300 mg PO HS [facility] Last Admin: 12/12/17 22:13 Dose: 300 mg Heparin Sodium (Porcine) (Heparin -) 5,000 unit SQ TID [facility] Last Admin: 12/13/17 05:42 Dose: Not Given Hydralazine HCl (Apresoline -) 20 mg PO TID [facility] Last Admin: 12/13/17 05:42 Dose: 20 mg Sodium Chloride (Normal Saline -) 250 mls @ 3,000 mls/hr IV PRN PRN PRN Reason: Hypotension during Dialysis Stop: 12/13/17 15:55 Insulin Aspart (Novolog Vial Sliding Scale -) [facility] Protocol Last Admin: 12/13/17 06:13 Dose: 2 units Latanoprost (Xalatan 0.005% Eye Drops -) 1 drop OD [facility] Last Admin: 12/12/17 22:13 Dose: 1 drop Lisinopril (Prinivil) 5 mg PO DAILY [facility] Multivit/Ca Carb/B Cmplx/FA/Prenat (Nephro-Gracie -) 1 tablet PO DAILY [facility] Sertraline HCl (Zoloft -) 25 mg PO DAILY [facility] - Objective Vital Signs: Vital Signs Temperature 98.1 F 12/13/17 05:00 Pulse Rate 84 12/13/17 05:00 Respiratory Rate 18 12/13/17 05:00 Blood Pressure 136/81 12/13/17 05:00 O2 Sat by Pulse Oximetry (%) 96 12/12/17 21:00 Constitutional: Yes: Calm Eyes: Yes: Other (left eye blind) Cardiovascular: Yes: S1, S2 Respiratory: Yes: CTA Bilaterally Gastrointestinal: Yes: Soft Genitourinary: Yes: WNL Musculoskeletal: Yes: WNL Edema: No Integumentary: Yes: Tattoos Neurological: Yes: Oriented Psychiatric: Yes: Oriented Labs: CBC, BMP 12/13/17 05:30 12/13/17 05:30 Problem List - Problems (1) Atypical chest pain Code(s): R07.89 - OTHER CHEST PAIN (2) Diabetes Code(s): E11.9 - TYPE 2 DIABETES MELLITUS WITHOUT COMPLICATIONS (3) ESRD (end stage renal disease) Code(s): N18.6 - END STAGE RENAL DISEASE (4) HTN (hypertension) Code(s): I10 - ESSENTIAL (PRIMARY) HYPERTENSION (5) Hyperkalemia Code(s): E87.5 - HYPERKALEMIA Assessment/Plan Current Medications Generic Name Dose Route Start Last Admin Trade Name Freq PRN Reason Stop Dose Admin Amlodipine Besylate 10 mg 12/13/17 10:00 Norvasc - PO DAILY GHA[facility]ALA Artificial Tears 1 drop 12/12/17 22:00 12/13/17 05:42 Artificial Tears OS 1 drop TID GHAZALA Administration Brimonidine Tartrate 1 drop 12/12/17 22:00 12/13/17 05:42 Alphagan 0.2% - OD 1 drop TID GHAZALA Administration Calcium Acetate 667 mg 12/12/17 17:30 12/12/17 18:35 Phoslo - PO 667 mg TIDCM GHAZALA Administration Gabapentin 300 mg 12/12/17 22:00 12/12/17 22:13 Neurontin - PO 300 mg HS GHAZALA Administration Heparin Sodium (Porcine) 5,000 unit 12/12/17 22:00 12/13/17 05:42 Heparin - SQ Not Given TID GHAZALA Hydralazine HCl 20 mg 12/12/17 16:30 12/13/17 05:42 Apresoline - PO 20 mg TID GHAZALA Administration Sodium Chloride 250 mls @ 3,000 mls/hr 12/12/17 15:54 Normal Saline - IV 12/13/17 15:55 PRN PRN Hypotension during Dialysis Insulin Aspart 1 vial 12/12/17 16:30 12/13/17 06:13 Novolog Vial Sliding Scale - SQ 2 units TIDAC G[facility]ALA Administration Protocol Latanoprost 1 drop 12/12/17 22:00 12/12/17 22:13 Xalatan 0.005% Eye Drops - OD 1 drop HS GHAZALA Administration Lisinopril 5 mg 12/13/17 10:00 Prinivil PO DAILY [facility] Multivit/Ca Carb/B Cmplx/FA/Prenat 1 tablet 12/13/17 10:00 Nephro-Gracie - PO DAILY [facility] Sertraline HCl 25 mg 12/13/17 10:00 Zoloft - PO DAILY [facility] Impression 1. ESRD 2. hyperkalemia 3. DM 4. HTN 5. chest pain 6. left eye blindness Plan - HD in am - follow up stress test - potassium is improved - cardiac workup in progress - monitor bp - will follow Dr Taveras
--- NOTE | 2017-12-13 12:56 | PN ---
Progress Note (short form) - Note Progress Note: pt denies chest pain ,SOB Feeling much better Vital Signs - 24 hr 12/12/17 12/12/17 12/12/17 13:47 15:46 16:40 Temperature 97.8 F 98.5 F 98.7 F Pulse Rate 98 H Pulse Rate [ 77 104 H Apical] Respiratory 16 16 18 Rate Blood Pressure 134/76 Blood Pressure 153/72 146/66 [Left Arm] O2 Sat by Pulse 99 99 Oximetry (%) 12/12/17 12/12/17 12/12/17 16:45 17:00 17:15 Temperature 97.9 F Pulse Rate 100 H 100 H 98 H Pulse Rate [ Apical] Respiratory 18 20 18 Rate Blood Pressure 132/78 135/90 110/72 Blood Pressure [Left Arm] O2 Sat by Pulse Oximetry (%) 12/12/17 12/12/17 12/12/17 17:45 18:00 18:15 Temperature 98.7 F Pulse Rate 90 109 H 104 H Pulse Rate [ Apical] Respiratory 18 18 18 Rate Blood Pressure 135/72 136/76 125/77 Blood Pressure [Left Arm] O2 Sat by Pulse 96 Oximetry (%) 12/12/17 12/12/17 12/12/17 18:45 19:15 19:45 Temperature Pulse Rate 105 H 96 H 90 Pulse Rate [ Apical] Respiratory 18 18 18 Rate Blood Pressure 117/94 134/70 132/60 Blood Pressure [Left Arm] O2 Sat by Pulse Oximetry (%) 12/12/17 12/12/17 12/13/17 19:56 21:00 01:00 Temperature 97.9 F 98 F Pulse Rate 96 H 93 H 85 Pulse Rate [ Apical] Respiratory 18 18 18 Rate Blood Pressure 130/65 132/69 149/77 Blood Pressure [Left Arm] O2 Sat by Pulse 96 Oximetry (%) 12/13/17 05:00 Temperature 98.1 F Pulse Rate 84 Pulse Rate [ Apical] Respiratory 18 Rate Blood Pressure 136/81 Blood Pressure [Left Arm] O2 Sat by Pulse Oximetry (%) Current Medications Generic Name Dose Route Start Last Admin Trade Name Freq PRN Reason Stop Dose Admin Amlodipine Besylate 10 mg 12/13/17 10:00 Norvasc - PO DAILY G[facility] Artificial Tears 1 drop 12/12/17 22:00 12/13/17 05:42 Artificial Tears OS 1 drop TID GHAZALA Administration Brimonidine Tartrate 1 drop 12/12/17 22:00 12/13/17 05:42 Alphagan 0.2% - OD 1 drop TID GHA[facility]ALA Administration Calcium Acetate 667 mg 12/12/17 17:30 12/12/17 18:35 Phoslo - PO 667 mg TIDCM GHA[facility]ALA Administration Gabapentin 300 mg 12/12/17 22:00 12/12/17 22:13 Neurontin - PO 300 mg HS GHAZALA Administration Heparin Sodium (Porcine) 5,000 unit 12/12/17 22:00 12/13/17 05:42 Heparin - SQ Not Given TID GHA[facility]ALA Heparin Sodium (Porcine) 1,000 unit 12/14/17 12:41 Heparin - IVPUSH 12/14/17 12:42 ONCE ONE Hydralazine HCl 20 mg 12/12/17 16:30 12/13/17 05:42 Apresoline - PO 20 mg TID GHAZALA Administration Sodium Chloride 250 mls @ 3,000 mls/hr 12/12/17 15:54 Normal Saline - IV 12/13/17 15:55 PRN PRN Hypotension during Dialysis Sodium Chloride 250 mls @ 3,000 mls/hr 12/13/17 12:41 Normal Saline - IV 12/14/17 12:41 PRN PRN Hypotension during Dialysis Insulin Aspart 1 vial 12/12/17 16:30 12/13/17 06:13 Novolog Vial Sliding Scale - SQ 2 units TIDAC GHAZALA Administration Protocol Latanoprost 1 drop 12/12/17 22:00 12/12/17 22:13 Xalatan 0.005% Eye Drops - OD 1 drop HS G[facility]ALA Administration Lisinopril 5 mg 12/13/17 10:00 Prinivil PO DAILY [facility] Multivit/Ca Carb/B Cmplx/FA/Prenat 1 tablet 12/13/17 10:00 Nephro-Gracie - PO DAILY [facility] Sertraline HCl 25 mg 12/13/17 10:00 Zoloft - PO DAILY [facility] Laboratory Results - last 24 hr 12/12/17 12/12/17 12/12/17 12:52 18:00 18:00 WBC RBC Hgb Hct MCV MCH MCHC RDW Plt Count MPV Sodium 133 L 143 Cancelled Potassium 7.0 H* 4.2 Cancelled Chloride 101 106 Cancelled Carbon Dioxide 23 24 Cancelled Anion Gap 9 13 Cancelled BUN 91 H 58 H Cancelled Creatinine 11.1 H* 7.6 H* Cancelled Creat Clearance w eGFR 5.17 8.01 Cancelled POC Glucometer Random Glucose 217 H 256 H Cancelled Hemoglobin A1c % Calcium 9.2 9.3 Cancelled Phosphorus Magnesium Total Bilirubin 0.4 AST 25 ALT 71 H Alkaline Phosphatase 76 Creatine Kinase 114 103 Troponin I < 0.02 < 0.02 Total Protein 7.7 Albumin 3.9 Triglycerides Cholesterol Total LDL Cholesterol HDL Cholesterol 12/12/17 12/13/17 12/13/17 18:33 05:30 05:30 WBC 4.0 RBC 3.43 L Hgb 11.0 L Hct 32.6 L MCV 94.8 MCH 32.1 MCHC 33.9 RDW 14.1 Plt Count 145 D MPV 8.9 D Sodium 144 Potassium 4.9 Chloride 104 Carbon Dioxide 31 Anion Gap 8 BUN 44 H Creatinine 7.3 H Creat Clearance w eGFR 8.39 POC Glucometer 305 Random Glucose 149 H Hemoglobin A1c % Calcium 8.6 Phosphorus 4.4 Magnesium 2.2 Total Bilirubin AST ALT Alkaline Phosphatase Creatine Kinase 85 Troponin I 0.04 Total Protein Albumin Triglycerides 98 Cholesterol 137 Total LDL Cholesterol 88 HDL Cholesterol 40 12/13/17 12/13/17 12/13/17 05:30 05:40 06:45 WBC RBC Hgb Hct MCV MCH MCHC RDW Plt Count MPV Sodium Potassium Chloride Carbon Dioxide Anion Gap BUN Creatinine Creat Clearance w eGFR POC Glucometer 161 Random Glucose Hemoglobin A1c % 8.3 H Calcium Phosphorus Magnesium Total Bilirubin AST ALT Alkaline Phosphatase Creatine Kinase Cancelled Troponin I Cancelled Total Protein Albumin Triglycerides Cholesterol Total LDL Cholesterol HDL Cholesterol S1 S2 RRR Lungs clear Abd- soft, NT No edema Rt arm AVF+, thrill+ A/P s/p stress test and Echo-- awaiting results had dialysis yesterday and is better- Potassium is better continue with meds OOB Cardiology eval Problem List - Problems (1) Atypical chest pain Code(s): R07.89 - OTHER CHEST PAIN (2) Diabetes Code(s): E11.9 - TYPE 2 DIABETES MELLITUS WITHOUT COMPLICATIONS (3) ESRD (end stage renal disease) Code(s): N18.6 - END STAGE RENAL DISEASE (4) HTN (hypertension) Code(s): I10 - ESSENTIAL (PRIMARY) HYPERTENSION (5) Hyperkalemia Code(s): E87.5 - HYPERKALEMIA
--- NOTE | 2017-12-13 13:51 | CON.CARD ---
Consult Consult Specialty:: Cardiology Reason for Consultation:: Chest pain - History of Present Illness Chief Complaint: Hyperkalemia. Chest Pain History of Present Illness: This is a 37 year old male with a PMH of HTN, DM, and ESRD on HD. NHR. He was hyperkalemia, K+ as high as 7.0. He was noted to have chest pain. While speaking with the scientific linguist, he developed left sided chest pain, non radiating, non extensional, worse with a deep breath. By history, he states that his mother had an OH at age 39. Presently he is CP free. Troponin negative, Echocardiogram 12/13/17 Mild to moderate LVH Normal LV size and funtion Moderate LAE Mod to severe MR - Past Medical History Cardio/Vascular: Yes: HTN Renal/: Yes: Renal Failure, Renal Inusuff, Hemodialysis Endocrine: Yes: Diabetes Mellitus - Past Surgical History Past Surgical History: Yes: AV Fistula/Graft - Alcohol/Substance Use Hx Alcohol Use: No - Smoking History Smoking history: Never smoked Have you smoked in the past 12 months: No Home Medications - Allergies Allergies/Adverse Reactions: Allergies Allergy/AdvReac Type Severity Reaction Status Date / Time aspirin Allergy Verified 12/12/17 11:28 - Home Medications Home Medications: Ambulatory Orders Acetaminophen [Tylenol] 650 mg PO Q6H PRN 12/12/17 Amlodipine Besylate 10 mg PO DAILY 12/12/17 Brimonidine Tartrate [Alphagan 0.2% -] 1 drop OD TID 12/12/17 Calcium Acetate 1 cap PO TID 12/12/17 Gabapentin 1 cap PO HS 12/12/17 Hydralazine HCl 20 mg PO Q8H 12/12/17 Insulin Lispro [Humalog] See Protocol SQ BID 12/12/17 Latanoprost 0.005% Eye Drops [Xalatan 0.005% Eye Drops -] 1 drop OD HS 12/12/17 Lisinopril 5 mg PO DAILY 12/12/17 Polyvinyl Alcohol [Artificial Tears] 1 drop OS TID 12/12/17 Sertraline HCl 25 mg PO DAILY 12/12/17 Vitamin B Comp W-C [Nephro-Gracie -] 1 tab PO DAILY 12/12/17 Family Disease History - Family Disease History Other Family History: family hx of DM Vital Signs: Vital Signs Temperature 98.1 F 12/13/17 05:00 Pulse Rate 84 12/13/17 05:00 Respiratory Rate 18 12/13/17 05:00 Blood Pressure 136/81 12/13/17 05:00 O2 Sat by Pulse Oximetry (%) 96 12/12/17 21:00 - Other Data Labs, Other Data: CBC, BMP 12/13/17 05:30 12/13/17 05:30 Troponin, BNP 12/12/17 12/13/17 12/13/17 18:00 05:30 06:45 Troponin I < 0.02 0.04 Cancelled Troponin, BNP 12/12/17 12/13/17 12/13/17 18:00 05:30 06:45 Troponin I < 0.02 0.04 Cancelled Assessment/Plan 37 year old male with a PMH of HTN, DM, and ESRD on HD. NHR. He was hyperkalemia , K+ as high as 7.0. He was noted to have chest pain. While speaking with the scientific linguist, he developed left sided chest pain, non radiating, non extensional, worse with a deep breath. By history, he states that his mother had an OH at age 39. Presently he is CP free. Troponin negative, Echocardiogram 12/13/17 Mild to moderate LVH Normal LV size and funtion Moderate LAE Mod to severe MR EKG NSR at 79 BPM with an incomplete RBBB, no acute changes. Chest Pain Troponin Negative EKG non acute Would obtain a Lexiscan nuclear stress test given risk factors Will follow with you
[2017-12-13] MEDS ORDERED: PT OWN MED DRAWER 7, Y5N ONE ×2 (15:08→21:35)
[2017-12-13] MEDS: VITAMIN B COMP W-C 1 EA TABLET PO SCH (16:11)
[2017-12-13] MEDS: SERTRALINE HCL 25 MG TABLET (FP) PO SCH (16:12)
[2017-12-13] MEDS: LISINOPRIL 5 MG TABLET (FP) PO SCH (16:12)
[2017-12-13] MEDS: amLODIPine BESYLATE 10 MG TABLET (FP) PO SCH (16:12)
[2017-12-13] MEDS: LATANOPROST 0.005% OPHTH SOLN 2.5ML BOTTLE OD SCH (21:38)
[2017-12-13] MEDS: GABAPENTIN 300 MG CAPSULE (FP) PO SCH (21:38)
[2017-12-14] MEDS: HEPARIN NA (PORCINE) 5,000 UNITS/ML 1ML VIAL SQ SCH ×3 (05:39→21:50)
[2017-12-14] MEDS: ARTIFICIAL TEARS (POLYVINYL ALCOHOL) OPTH DROPS OS SCH ×3 (05:41→21:51)
[2017-12-14] MEDS: BRIMONIDINE TARTRATE 0.2% OPHTHALMIC 5 ML BOTTLE OD SCH ×3 (05:41→21:55)
[2017-12-14] MEDS ORDERED: PT OWN MED DRAWER 7, Y5N ONE ×2 (05:43→21:47)
[2017-12-14] MEDS: hydrALAZINE HCL 10 MG TABLET PO SCH ×3 (05:44→21:51)
[2017-12-14 06:06] LABS: HBSAG SCREEN Negative (Negative)
[2017-12-14] MEDS: INSULIN SLIDING SCALE (NOVOLOG) 1 VIAL SQ SCH ×3 (06:13→18:09)
[2017-12-14] MEDS: CALCIUM ACETATE 667 MG CAPSULE (FP) PO SCH ×3 (08:11→16:54)
--- NOTE | 2017-12-14 11:35 | PN ---
Progress Note (short form) - Note Progress Note: pt denies chest pain ,SOB Vital Signs - 24 hr 12/13/17 12/13/17 12/14/17 17:00 21:00 01:17 Temperature 98.0 F 98.1 F 98.5 F Pulse Rate 73 88 91 H Respiratory 20 18 18 Rate Blood Pressure 123/48 L 151/82 144/81 O2 Sat by Pulse 99 Oximetry (%) 12/14/17 12/14/17 12/14/17 05:00 09:00 12:25 Temperature 98.3 F 97.8 F Pulse Rate 86 98 H Respiratory 19 18 Rate Blood Pressure 136/68 154/80 O2 Sat by Pulse 100 Oximetry (%) 12/14/17 12/14/17 12/14/17 12:30 13:00 13:30 Temperature Pulse Rate 82 84 80 Respiratory 18 18 18 Rate Blood Pressure 153/80 147/82 145/72 O2 Sat by Pulse Oximetry (%) 12/14/17 12/14/17 14:00 14:30 Temperature 98.4 F Pulse Rate 82 81 Respiratory 18 18 Rate Blood Pressure 140/72 155/77 O2 Sat by Pulse Oximetry (%) Current Medications Generic Name Dose Route Start Last Admin Trade Name Freq PRN Reason Stop Dose Admin Amlodipine Besylate 10 mg 12/13/17 10:00 12/13/17 16:12 Norvasc - PO 10 mg DAILY [facility] Administration Artificial Tears 1 drop 12/12/17 22:00 12/14/17 05:41 Artificial Tears OS 1 drop TID [facility] Administration Brimonidine Tartrate 1 drop 12/12/17 22:00 12/14/17 05:41 Alphagan 0.2% - OD 1 drop TID [facility] Administration Calcium Acetate 667 mg 12/12/17 17:30 12/14/17 11:11 Phoslo - PO 667 mg TIDCM [facility] Administration Gabapentin 300 mg 12/12/17 22:00 12/13/17 21:38 Neurontin - PO 300 mg HS [facility] Administration Heparin Sodium (Porcine) 5,000 unit 12/12/17 22:00 12/14/17 05:39 Heparin - SQ Not Given TID [facility] Hydralazine HCl 20 mg 12/12/17 16:30 12/14/17 05:44 Apresoline - PO 20 mg TID [facility] Administration Insulin Aspart 1 vial 12/12/17 16:30 12/14/17 06:13 Novolog Vial Sliding Scale - SQ Not Given TIDAC [facility] Protocol Latanoprost 1 drop 12/12/17 22:00 12/13/17 21:38 Xalatan 0.005% Eye Drops - OD 1 drop HS [facility] Administration Lisinopril 5 mg 12/13/17 10:00 12/13/17 16:12 Prinivil PO 5 mg DAILY [facility] Administration Multivit/Ca Carb/B Cmplx/FA/Prenat 1 tablet 12/13/17 10:00 12/13/17 16:11 Nephro-Gracie - PO 1 tablet DAILY [facility] Administration Sertraline HCl 25 mg 12/13/17 10:00 12/13/17 16:12 Zoloft - PO 25 mg DAILY [facility] Administration Laboratory Results - last 24 hr 12/12/17 12/12/17 12/13/17 18:00 18:00 21:10 WBC RBC Hgb Hct MCV MCH MCHC RDW Plt Count MPV POC Glucometer 118 Hepatitis A Ab Total Negative Hep Bs Antigen Negative Hep Bs Antibody Reactive Hep C Ab Diagnostic <0.1 Liver Fibrosis Interp 12/14/17 12/14/17 12/14/17 05:26 11:34 12:30 WBC 4.1 RBC 3.52 L Hgb 11.3 L Hct 33.6 L MCV 95.4 MCH 32.1 MCHC 33.7 RDW 13.8 Plt Count 150 MPV 9.9 D POC Glucometer 135 176 Hepatitis A Ab Total Hep Bs Antigen Hep Bs Antibody Hep C Ab Diagnostic Liver Fibrosis Interp S1 S2 RRR Lungs clear Abd- soft, NT No edema Rt arm AVF+, thrill+ A/P s/p stress test and Echo--abnormal stress test dialysis today continue with meds OOB Cardiology follow up Problem List - Problems (1) Atypical chest pain Code(s): R07.89 - OTHER CHEST PAIN (2) Diabetes Code(s): E11.9 - TYPE 2 DIABETES MELLITUS WITHOUT COMPLICATIONS (3) ESRD (end stage renal disease) Code(s): N18.6 - END STAGE RENAL DISEASE (4) HTN (hypertension) Code(s): I10 - ESSENTIAL (PRIMARY) HYPERTENSION (5) Hyperkalemia Code(s): E87.5 - HYPERKALEMIA
[2017-12-14] MEDS ORDERED: HEPARIN NA (PORCINE) 5,000 UNITS/ML 1ML VIAL IVPUSH ONE (13:15)
[2017-12-14 13:39] LABS: HEMATOCRIT 33.6 % (35.4-49); HEMOGLOBIN 11.3 GM/dL (11.7-16.9); MCH 32.1 pg (25.7-33.7); MCHC 33.7 g/dl (32.0-35.9); MEAN CELL VOLUME 95.4 fl (80-96); MEAN PLT VOLUME 9.9 fl (7.5-11.1); PLATELET COUNT 150 K/MM3 (134-434); RBC 3.52 M/mm3 (4.00-5.60); RDW 13.8 % (11.9-15.9); WHITE BLOOD COUNT 4.1 K/mm3 (4.0-10.0)
--- NOTE | 2017-12-14 16:16 | PN ---
Progress Note, Physician History of Present Illness: Pt seen and examined at bedside. He is awake and alert. He denies chest pain. - Current Medication List Current Medications: Active Medications Amlodipine Besylate (Norvasc -) 10 mg PO DAILY [facility] Last Admin: 12/13/17 16:12 Dose: 10 mg Artificial Tears (Artificial Tears) 1 drop OS TID [facility] Last Admin: 12/14/17 05:41 Dose: 1 drop Brimonidine Tartrate (Alphagan 0.2% -) 1 drop OD TID [facility] Last Admin: 12/14/17 05:41 Dose: 1 drop Calcium Acetate (Phoslo -) 667 mg PO TIDCM [facility] Last Admin: 12/14/17 11:11 Dose: 667 mg Gabapentin (Neurontin -) 300 mg PO HS [facility] Last Admin: 12/13/17 21:38 Dose: 300 mg Heparin Sodium (Porcine) (Heparin -) 5,000 unit SQ TID [facility] Last Admin: 12/14/17 05:39 Dose: Not Given Hydralazine HCl (Apresoline -) 20 mg PO TID [facility] Last Admin: 12/14/17 05:44 Dose: 20 mg Insulin Aspart (Novolog Vial Sliding Scale -) 1 vial SQ TIDAC [facility]; Protocol Last Admin: 12/14/17 06:13 Dose: Not Given Insulin Detemir (Levemir Vial) 8 units SQ HS [facility] Latanoprost (Xalatan 0.005% Eye Drops -) 1 drop OD HS [facility] Last Admin: 12/13/17 21:38 Dose: 1 drop Lisinopril (Prinivil) 5 mg PO DAILY [facility] Last Admin: 12/13/17 16:12 Dose: 5 mg Multivit/Ca Carb/B Cmplx/FA/Prenat (Nephro-Gracie -) 1 tablet PO DAILY [facility] Last Admin: 12/13/17 16:11 Dose: 1 tablet Sertraline HCl (Zoloft -) 25 mg PO DAILY [facility] Last Admin: 12/13/17 16:12 Dose: 25 mg - Objective Vital Signs: Vital Signs Temperature 98.4 F 12/14/17 14:00 Pulse Rate 81 12/14/17 14:30 Respiratory Rate 18 12/14/17 14:30 Blood Pressure 155/77 12/14/17 14:30 O2 Sat by Pulse Oximetry (%) 100 12/14/17 09:00 Constitutional: Yes: Calm Cardiovascular: Yes: S1, S2 Respiratory: Yes: CTA Bilaterally Gastrointestinal: Yes: Soft Genitourinary: Yes: WNL Musculoskeletal: Yes: WNL Edema: No Integumentary: Yes: Tattoos Neurological: Yes: Oriented Psychiatric: Yes: Oriented Labs: CBC, BMP 12/14/17 12:30 12/13/17 05:30 Problem List - Problems (1) Atypical chest pain Code(s): R07.89 - OTHER CHEST PAIN (2) Diabetes Code(s): E11.9 - TYPE 2 DIABETES MELLITUS WITHOUT COMPLICATIONS (3) ESRD (end stage renal disease) Code(s): N18.6 - END STAGE RENAL DISEASE (4) HTN (hypertension) Code(s): I10 - ESSENTIAL (PRIMARY) HYPERTENSION (5) Hyperkalemia Code(s): E87.5 - HYPERKALEMIA Assessment/Plan Current Medications Generic Name Dose Route Start Last Admin Trade Name Freq PRN Reason Stop Dose Admin Amlodipine Besylate 10 mg 12/13/17 10:00 12/13/17 16:12 Norvasc - PO 10 mg DAILY [facility] Administration Artificial Tears 1 drop 12/12/17 22:00 12/14/17 05:41 Artificial Tears OS 1 drop TID [facility] Administration Brimonidine Tartrate 1 drop 12/12/17 22:00 12/14/17 05:41 Alphagan 0.2% - OD 1 drop TID [facility] Administration Calcium Acetate 667 mg 12/12/17 17:30 12/14/17 11:11 Phoslo - PO 667 mg TIDCM [facility] Administration Gabapentin 300 mg 12/12/17 22:00 12/13/17 21:38 Neurontin - PO 300 mg HS [facility] Administration Heparin Sodium (Porcine) 5,000 unit 12/12/17 22:00 12/14/17 05:39 Heparin - SQ Not Given TID [facility] Hydralazine HCl 20 mg 12/12/17 16:30 12/14/17 05:44 Apresoline - PO 20 mg TID [facility] Administration Insulin Aspart 1 vial 12/12/17 16:30 12/14/17 06:13 Novolog Vial Sliding Scale - SQ Not Given TIDAC [facility] Protocol Insulin Detemir 8 units 12/14/17 22:00 Levemir Vial SQ HS [facility] Latanoprost 1 drop 12/12/17 22:00 12/13/17 21:38 Xalatan 0.005% Eye Drops - OD 1 drop HS [facility] Administration Lisinopril 5 mg 12/13/17 10:00 12/13/17 16:12 Prinivil PO 5 mg DAILY [facility] Administration Multivit/Ca Carb/B Cmplx/FA/Prenat 1 tablet 12/13/17 10:00 12/13/17 16:11 Nephro-Gracie - PO 1 tablet DAILY [facility] Administration Sertraline HCl 25 mg 12/13/17 10:00 12/13/17 16:12 Zoloft - PO 25 mg DAILY [facility] Administration Impression 1. ESRD 2. hyperkalemia 3. DM 4. HTN 5. chest pain 6. left eye blindness Plan - HD today - will dialyze for 3: 45 today - cardio follow up - stress test abnormal - monitor bp - will follow Dr Taveras
[2017-12-14] MEDS: VITAMIN B COMP W-C 1 EA TABLET PO SCH (16:39)
[2017-12-14] MEDS: LISINOPRIL 5 MG TABLET (FP) PO SCH (16:40)
[2017-12-14] MEDS: amLODIPine BESYLATE 10 MG TABLET (FP) PO SCH (16:40)
[2017-12-14] MEDS: SERTRALINE HCL 25 MG TABLET (FP) PO SCH (16:40)
--- NOTE | 2017-12-14 17:06 | PN ---
Progress Note, Physician Chief Complaint: Comfortable History of Present Illness: This is a 37 year old male with a PMH of HTN, DM, and ESRD on HD. NHR. He was hyperkalemia, K+ as high as 7.0. He was noted to have chest pain. While speaking with the decision analyst, he developed left sided chest pain, non radiating, non extensional, worse with a deep breath. By history, he states that his mother had an NV at age 39. Presently he is CP free. Troponin negative, Echocardiogram 12/13/17 Mild to moderate LVH Normal LV size and funtion Moderate LAE Mod to severe MR - Current Medication List Current Medications: Active Medications Amlodipine Besylate (Norvasc -) 10 mg PO DAILY [facility] Last Admin: 12/14/17 16:40 Dose: 10 mg Artificial Tears (Artificial Tears) 1 drop OS TID [facility] Last Admin: 12/14/17 05:41 Dose: 1 drop Brimonidine Tartrate (Alphagan 0.2% -) 1 drop OD TID [facility] Last Admin: 12/14/17 05:41 Dose: 1 drop Calcium Acetate (Phoslo -) 667 mg PO TIDCM [facility] Last Admin: 12/14/17 16:54 Dose: 667 mg Gabapentin (Neurontin -) 300 mg PO HS [facility] Last Admin: 12/13/17 21:38 Dose: 300 mg Heparin Sodium (Porcine) (Heparin -) 5,000 unit SQ TID [facility] Last Admin: 12/14/17 16:41 Dose: 5,000 unit Hydralazine HCl (Apresoline -) 20 mg PO TID [facility] Last Admin: 12/14/17 16:41 Dose: 20 mg Insulin Aspart (Novolog Vial Sliding Scale -) 1 vial SQ TIDAC [facility]; Protocol Last Admin: 12/14/17 11:53 Dose: Not Given Insulin Detemir (Levemir Vial) 8 units SQ HS [facility] Latanoprost (Xalatan 0.005% Eye Drops -) 1 drop OD HS [facility] Last Admin: 12/13/17 21:38 Dose: 1 drop Lisinopril (Prinivil) 5 mg PO DAILY [facility] Last Admin: 12/14/17 16:40 Dose: 5 mg Multivit/Ca Carb/B Cmplx/FA/Prenat (Nephro-Gracie -) 1 tablet PO DAILY [facility] Last Admin: 12/14/17 16:39 Dose: 1 tablet Sertraline HCl (Zoloft -) 25 mg PO DAILY [facility] Last Admin: 12/14/17 16:40 Dose: 25 mg - Objective Vital Signs: Vital Signs Temperature 98.4 F 12/14/17 14:00 Pulse Rate 77 12/14/17 16:46 Respiratory Rate 18 12/14/17 16:46 Blood Pressure 161/99 12/14/17 16:46 O2 Sat by Pulse Oximetry (%) 100 12/14/17 09:00 Constitutional: Yes: Well Nourished Eyes: Yes: WNL HENT: Yes: WNL Neck: Yes: WNL Cardiovascular: Yes: Regular Rate and Rhythm (NL S1S2) Respiratory: Yes: CTA Bilaterally Gastrointestinal: Yes: Normal Bowel Sounds, Soft Breast(s): Yes: WNL Extremities: Yes: WNL Edema: No Neurological: Yes: Alert, Oriented (Non focal) Labs: CBC, BMP 12/14/17 12:30 12/13/17 05:30 Assessment/Plan 37 year old male with a PMH of HTN, DM, and ESRD on HD. NHR. He was hyperkalemia , K+ as high as 7.0. He was noted to have chest pain. While speaking with the decision analyst, he developed left sided chest pain, non radiating, non extensional, worse with a deep breath. By history, he states that his mother had an NV at age 39. Presently he is CP free. Troponin negative, Echocardiogram 12/13/17 Mild to moderate LVH Normal LV size and funtion Moderate LAE Mod to severe MR EKG NSR at 79 BPM with an incomplete RBBB, no acute changes. Chest Pain Troponin Negative EKG non acute Lexiscan is positive for postero lateral ischemia. Will transfer to [facility] for Cath Received HD today
[2017-12-14] MEDS ORDERED: INSULIN (NOVOLOG) ASPART 100 UNITS/ML 10ML VIAL ONE (18:14)
[2017-12-14] MEDS: INSULIN (LEVEMIR) 100 UNITS/ML UNITS SQ SCH (21:49)
[2017-12-14] MEDS: GABAPENTIN 300 MG CAPSULE (FP) PO SCH (21:51)
[2017-12-14] MEDS: LATANOPROST 0.005% OPHTH SOLN 2.5ML BOTTLE OD SCH (21:56)
[2017-12-15] MEDS ORDERED: PT OWN MED DRAWER 7, Y5N ONE ×2 (06:02→22:10)
[2017-12-15] MEDS: BRIMONIDINE TARTRATE 0.2% OPHTHALMIC 5 ML BOTTLE OD SCH ×3 (06:19→21:11)
[2017-12-15] MEDS: ARTIFICIAL TEARS (POLYVINYL ALCOHOL) OPTH DROPS OS SCH ×3 (06:19→21:12)
[2017-12-15] MEDS: hydrALAZINE HCL 10 MG TABLET PO SCH ×3 (06:19→21:10)
[2017-12-15] MEDS: HEPARIN NA (PORCINE) 5,000 UNITS/ML 1ML VIAL SQ SCH ×3 (06:20→21:12)
[2017-12-15] MEDS: INSULIN SLIDING SCALE (NOVOLOG) 1 VIAL SQ SCH ×3 (06:21→17:09)
[2017-12-15] MEDS: CALCIUM ACETATE 667 MG CAPSULE (FP) PO SCH ×3 (08:45→17:18)
[2017-12-15] MEDS: LISINOPRIL 5 MG TABLET (FP) PO SCH (10:06)
[2017-12-15] MEDS: VITAMIN B COMP W-C 1 EA TABLET PO SCH (10:06)
[2017-12-15] MEDS: SERTRALINE HCL 25 MG TABLET (FP) PO SCH (10:06)
[2017-12-15] MEDS: amLODIPine BESYLATE 10 MG TABLET (FP) PO SCH (10:07)
--- NOTE | 2017-12-15 11:31 | PN ---
Progress Note (short form) - Note Progress Note: pt seen/ examined chart reviewed awake/ comfortable denies cp/sob. denies abd pain Vital Signs Temp 98.3 F 12/15/17 08:42 Pulse 81 12/15/17 08:42 Resp 16 12/15/17 08:42 BP 137/83 12/15/17 08:42 Pulse Ox 100 12/15/17 08:42 Intake & Output 12/14/17 12/14/17 12/15/17 11:59 23:59 11:59 Intake Total 370 400 Balance 370 400 Weight 194 lb 12.8 oz 195 lb 9.6 oz Intake: IV 10 SALINE LOCK 10 Oral 360 400 Other: Voiding Method Toilet Toilet Toilet # Unmeasured Voids Void 1 1 Weight Measurement Method Standing Scale Standing Scale Active Medications Amlodipine Besylate (Norvasc -) 10 mg PO DAILY [facility] Last Admin: 12/15/17 10:07 Dose: 10 mg Artificial Tears (Artificial Tears) 1 drop OS TID [facility] Last Admin: 12/15/17 06:19 Dose: 1 drop Brimonidine Tartrate (Alphagan 0.2% -) 1 drop OD TID [facility] Last Admin: 12/15/17 06:19 Dose: 1 drop Calcium Acetate (Phoslo -) 667 mg PO TIDCM [facility] Last Admin: 12/15/17 08:45 Dose: 667 mg Gabapentin (Neurontin -) 300 mg PO HS [facility] Last Admin: 12/14/17 21:51 Dose: 300 mg Heparin Sodium (Porcine) (Heparin -) 5,000 unit SQ TID [facility] Last Admin: 12/15/17 06:20 Dose: Not Given Hydralazine HCl (Apresoline -) 20 mg PO TID [facility] Last Admin: 12/15/17 06:19 Dose: 20 mg Insulin Aspart (Novolog Vial Sliding Scale -) 1 vial SQ TIDAC [facility]; Protocol Last Admin: 12/15/17 11:28 Dose: 2 units Insulin Detemir (Levemir Vial) 8 units SQ [facility] Last Admin: 12/14/17 21:49 Dose: Not Given Latanoprost (Xalatan 0.005% Eye Drops -) 1 drop OD [facility] Last Admin: 12/14/17 21:56 Dose: 1 drop Lisinopril (Prinivil) 5 mg PO DAILY [facility] Last Admin: 12/15/17 10:06 Dose: 5 mg Multivit/Ca Carb/B Cmplx/FA/Prenat (Nephro-Gracie -) 1 tablet PO DAILY [facility] Last Admin: 12/15/17 10:06 Dose: 1 tablet Sertraline HCl (Zoloft -) 25 mg PO DAILY [facility] Last Admin: 12/15/17 10:06 Dose: 25 mg CBC, BMP 12/14/17 12:30 12/13/17 05:30 Physical Exam. Conscious/ cooperative. S1 S2 RRR Lungs clear Abd- soft, NT No edema Rt arm AVF+, thrill+ A/P cp +ve stress test DFor transfer to [facility] FOR Cardiac Cath continue with meds Meds reviewed Pt not on asa-- will start on baby asa. Dialysis per renal. will follow Problem List - Problems (1) Atypical chest pain Code(s): R07.89 - OTHER CHEST PAIN (2) Diabetes Code(s): E11.9 - TYPE 2 DIABETES MELLITUS WITHOUT COMPLICATIONS (3) ESRD (end stage renal disease) Code(s): N18.6 - END STAGE RENAL DISEASE (4) HTN (hypertension) Code(s): I10 - ESSENTIAL (PRIMARY) HYPERTENSION (5) Hyperkalemia Code(s): E87.5 - HYPERKALEMIA
[2017-12-15] MEDS ORDERED: SODIUM CHLORIDE 250 ML IV PRN (15:40)
--- NOTE | 2017-12-15 15:40 | PN ---
Progress Note, Physician History of Present Illness: Pt seen and examined at bedside. He is awake and alert. He is being transferred for cath. - Current Medication List Current Medications: Active Medications Amlodipine Besylate (Norvasc -) 10 mg PO DAILY [facility] Last Admin: 12/15/17 10:07 Dose: 10 mg Artificial Tears (Artificial Tears) 1 drop OS TID [facility] Last Admin: 12/15/17 14:00 Dose: 1 drop Brimonidine Tartrate (Alphagan 0.2% -) 1 drop OD TID [facility] Last Admin: 12/15/17 14:00 Dose: 1 drop Calcium Acetate (Phoslo -) 667 mg PO TIDCM [facility] Last Admin: 12/15/17 11:41 Dose: 667 mg Gabapentin (Neurontin -) 300 mg PO HS [facility] Last Admin: 12/14/17 21:51 Dose: 300 mg Heparin Sodium (Porcine) (Heparin -) 5,000 unit SQ TID [facility] Last Admin: 12/15/17 14:00 Dose: Not Given Hydralazine HCl (Apresoline -) 20 mg PO TID [facility] Last Admin: 12/15/17 13:59 Dose: 20 mg Insulin Aspart (Novolog Vial Sliding Scale -) 1 vial SQ TIDAC [facility]; Protocol Last Admin: 12/15/17 11:28 Dose: 2 units Insulin Detemir (Levemir Vial) 8 units SQ [facility] Last Admin: 12/14/17 21:49 Dose: Not Given Latanoprost (Xalatan 0.005% Eye Drops -) 1 drop OD [facility] Last Admin: 12/14/17 21:56 Dose: 1 drop Lisinopril (Prinivil) 5 mg PO DAILY [facility] Last Admin: 12/15/17 10:06 Dose: 5 mg Multivit/Ca Carb/B Cmplx/FA/Prenat (Nephro-Gracie -) 1 tablet PO DAILY [facility] Last Admin: 12/15/17 10:06 Dose: 1 tablet Sertraline HCl (Zoloft -) 25 mg PO DAILY [facility] Last Admin: 12/15/17 10:06 Dose: 25 mg - Objective Vital Signs: Vital Signs Temperature 98.3 F 12/15/17 08:42 Pulse Rate 81 12/15/17 08:42 Respiratory Rate 16 12/15/17 08:42 Blood Pressure 137/83 12/15/17 08:42 O2 Sat by Pulse Oximetry (%) 100 12/15/17 08:42 Constitutional: Yes: Calm HENT: Yes: Atraumatic Cardiovascular: Yes: S1, S2 Respiratory: Yes: CTA Bilaterally Gastrointestinal: Yes: Soft Genitourinary: Yes: WNL Musculoskeletal: Yes: WNL Edema: No Integumentary: Yes: Tattoos Neurological: Yes: Oriented Psychiatric: Yes: Oriented Labs: CBC, BMP 12/14/17 12:30 12/13/17 05:30 Problem List - Problems (1) Atypical chest pain Code(s): R07.89 - OTHER CHEST PAIN (2) Diabetes Code(s): E11.9 - TYPE 2 DIABETES MELLITUS WITHOUT COMPLICATIONS (3) ESRD (end stage renal disease) Code(s): N18.6 - END STAGE RENAL DISEASE (4) HTN (hypertension) Code(s): I10 - ESSENTIAL (PRIMARY) HYPERTENSION (5) Hyperkalemia Code(s): E87.5 - HYPERKALEMIA Assessment/Plan Current Medications Generic Name Dose Route Start Last Admin Trade Name Allen PRN Reason Stop Dose Admin Amlodipine Besylate 10 mg 12/13/17 10:00 12/15/17 10:07 Norvasc - PO 10 mg DAILY [facility] Administration Artificial Tears 1 drop 12/12/17 22:00 12/15/17 14:00 Artificial Tears OS 1 drop TID [facility] Administration Brimonidine Tartrate 1 drop 12/12/17 22:00 12/15/17 14:00 Alphagan 0.2% - OD 1 drop TID [facility] Administration Calcium Acetate 667 mg 12/12/17 17:30 12/15/17 11:41 Phoslo - PO 667 mg TIDCM [facility] Administration Gabapentin 300 mg 12/12/17 22:00 12/14/17 21:51 Neurontin - PO 300 mg HS [facility] Administration Heparin Sodium (Porcine) 5,000 unit 12/12/17 22:00 12/15/17 14:00 Heparin - SQ Not Given TID [facility] Hydralazine HCl 20 mg 12/12/17 16:30 12/15/17 13:59 Apresoline - PO 20 mg TID [facility] Administration Insulin Aspart 1 vial 12/12/17 16:30 12/15/17 11:28 Novolog Vial Sliding Scale - SQ 2 units TIDAC [facility] Administration Protocol Insulin Detemir 8 units 12/14/17 22:00 12/14/17 21:49 Levemir Vial SQ Not Given HS [facility] Latanoprost 1 drop 12/12/17 22:00 12/14/17 21:56 Xalatan 0.005% Eye Drops - OD 1 drop HS [facility] Administration Lisinopril 5 mg 12/13/17 10:00 12/15/17 10:06 Prinivil PO 5 mg DAILY [facility] Administration Multivit/Ca Carb/B Cmplx/FA/Prenat 1 tablet 12/13/17 10:00 12/15/17 10:06 Nephro-Gracie - PO 1 tablet DAILY [facility] Administration Sertraline HCl 25 mg 12/13/17 10:00 12/15/17 10:06 Zoloft - PO 25 mg DAILY [facility] Administration Impression 1. ESRD 2. hyperkalemia 3. DM 4. HTN 5. chest pain 6. left eye blindness Plan - pt is pending transfer for cath - will order HD for am if he is not transferred - cardio follow up - monitor bp - will follow Dr Taveras
--- NOTE | 2017-12-15 16:08 | PN ---
Progress Note, Physician Chief Complaint: Comfortable History of Present Illness: This is a 37 year old male with a PMH of HTN, DM, and ESRD on HD. NHR. He was hyperkalemia, K+ as high as 7.0. He was noted to have chest pain. While speaking with the arterial embalmer, he developed left sided chest pain, non radiating, non extensional, worse with a deep breath. By history, he states that his mother had an [place] at age 39. Presently he is CP free. Troponin negative, Echocardiogram 12/13/17 Mild to moderate LVH Normal LV size and funtion Moderate LAE Mod to severe MR - Current Medication List Current Medications: Active Medications Amlodipine Besylate (Norvasc -) 10 mg PO DAILY [facility] Last Admin: 12/15/17 10:07 Dose: 10 mg Artificial Tears (Artificial Tears) 1 drop OS TID [facility] Last Admin: 12/15/17 14:00 Dose: 1 drop Brimonidine Tartrate (Alphagan 0.2% -) 1 drop OD TID [facility] Last Admin: 12/15/17 14:00 Dose: 1 drop Calcium Acetate (Phoslo -) 667 mg PO TIDCM [facility] Last Admin: 12/15/17 11:41 Dose: 667 mg Gabapentin (Neurontin -) 300 mg PO HS [facility] Last Admin: 12/14/17 21:51 Dose: 300 mg Heparin Sodium (Porcine) (Heparin -) 5,000 unit SQ TID [facility] Last Admin: 12/15/17 14:00 Dose: Not Given Hydralazine HCl (Apresoline -) 20 mg PO TID [facility] Last Admin: 12/15/17 13:59 Dose: 20 mg Sodium Chloride (Normal Saline -) 250 mls @ 3,000 mls/hr IV PRN PRN PRN Reason: Hypotension during Dialysis Stop: 12/16/17 15:41 Insulin Aspart (Novolog Vial Sliding Scale -) 1 vial SQ TIDAC [facility]; Protocol Last Admin: 12/15/17 11:28 Dose: 2 units Insulin Detemir (Levemir Vial) 8 units SQ [facility] Last Admin: 12/14/17 21:49 Dose: Not Given Latanoprost (Xalatan 0.005% Eye Drops -) 1 drop OD HS [facility] Last Admin: 12/14/17 21:56 Dose: 1 drop Lisinopril (Prinivil) 5 mg PO DAILY [facility] Last Admin: 12/15/17 10:06 Dose: 5 mg Multivit/Ca Carb/B Cmplx/FA/Prenat (Nephro-Gracie -) 1 tablet PO DAILY [facility] Last Admin: 12/15/17 10:06 Dose: 1 tablet Sertraline HCl (Zoloft -) 25 mg PO DAILY [facility] Last Admin: 12/15/17 10:06 Dose: 25 mg - Objective Vital Signs: Vital Signs Temperature 98.3 F 12/15/17 08:42 Pulse Rate 81 12/15/17 08:42 Respiratory Rate 16 12/15/17 08:42 Blood Pressure 137/83 12/15/17 08:42 O2 Sat by Pulse Oximetry (%) 100 12/15/17 08:42 Constitutional: Yes: No Distress Eyes: Yes: WNL HENT: Yes: WNL Neck: Yes: WNL Cardiovascular: Yes: Regular Rate and Rhythm (NL S1S2, no MRHG) Respiratory: Yes: CTA Bilaterally Gastrointestinal: Yes: Normal Bowel Sounds, Soft Extremities: Yes: WNL Edema: No Neurological: Yes: Alert, Oriented (Non focal) Labs: CBC, BMP 12/14/17 12:30 12/13/17 05:30 Assessment/Plan 37 year old male with a PMH of HTN, DM, and ESRD on HD. NHR. He was hyperkalemia , K+ as high as 7.0. He was noted to have chest pain. While speaking with the arterial embalmer, he developed left sided chest pain, non radiating, non extensional, worse with a deep breath. By history, he states that his mother had an [place] at age 39. Presently he is CP free. Troponin negative, Echocardiogram 12/13/17 Mild to moderate LVH Normal LV size and funtion Moderate LAE Mod to severe MR EKG NSR at 79 BPM with an incomplete RBBB, no acute changes. Chest Pain Troponin Negative EKG non acute Lexiscan is positive for postero lateral ischemia. Will transfer to [facility] for Cath Awaiting bed availability Received HD yesterday
[2017-12-15] MEDS: GABAPENTIN 300 MG CAPSULE (FP) PO SCH (21:10)
[2017-12-15] MEDS: LATANOPROST 0.005% OPHTH SOLN 2.5ML BOTTLE OD SCH (21:11)
[2017-12-15] MEDS: INSULIN (LEVEMIR) 100 UNITS/ML UNITS SQ SCH (21:12)
[2017-12-16 01:57] VITALS: PULSE 77
[2017-12-16 06:04] VITALS: BP 146/79; TEMP 98.6
[2017-12-16] MEDS ORDERED: PT OWN MED DRAWER 7, Y5N ONE ×2 (06:08→06:40)
[2017-12-16] MEDS: HEPARIN NA (PORCINE) 5,000 UNITS/ML 1ML VIAL SQ SCH (06:28)
[2017-12-16] MEDS: INSULIN SLIDING SCALE (NOVOLOG) 1 VIAL SQ SCH (06:28)
[2017-12-16] MEDS: hydrALAZINE HCL 10 MG TABLET PO SCH (06:30)
[2017-12-16] MEDS: ARTIFICIAL TEARS (POLYVINYL ALCOHOL) OPTH DROPS OS SCH (06:31)
[2017-12-16] MEDS: BRIMONIDINE TARTRATE 0.2% OPHTHALMIC 5 ML BOTTLE OD SCH (06:31)
[2017-12-16 08:05] LABS: HEMATOCRIT 31.6 % (35.4-49); HEMOGLOBIN 10.9 GM/dL (11.7-16.9); MCH 32.5 pg (25.7-33.7); MCHC 34.6 g/dl (32.0-35.9); MEAN CELL VOLUME 93.7 fl (80-96); MEAN PLT VOLUME 9.5 fl (7.5-11.1); PLATELET COUNT 146 K/MM3 (134-434); RBC 3.37 M/mm3 (4.00-5.60); RDW 13.6 % (11.9-15.9); WHITE BLOOD COUNT 3.4 K/mm3 (4.0-10.0)
[2017-12-16 09:02] LABS: ANION GAP 8 MMOL/L (8-16); BLOOD UREA NITROGEN 59 mg/dL (7-18); CALCIUM 8.9 mg/dL (8.5-10.1); CHLORIDE 99 mmol/L (98-107); CO2 28 mmol/L (21-32); GLUCOSE,RANDOM 85 mg/dL (74-106); POTASSIUM 5.1 mmol/L (3.5-5.1); SODIUM 135 mmol/L (136-145)
[2017-12-16] MEDS: CALCIUM ACETATE 667 MG CAPSULE (FP) PO SCH (09:07)
[2017-12-16 09:17] LABS: CREATININE 8.2 mg/dL (0.55-1.3)
== END 2017-12-16 09:07 | disposition short-term general hospital (02) | DRG 302 ==
LOC: JER 11:00 → JERBED 14:25 → J4W 16:03
PROVIDERS: ADMIT Internal Medicine; ATTEND Internal Medicine
PROC: 5A1D70Z Performance of Urinary Filtration, Intermittent, Less than 6 Hours Per Day (ICD-10-PCS; principal; 2017-12-12)
DX: I25.9 Chronic ischemic heart disease, unspecified (principal); N18.6 End stage renal disease; I12.0 Hypertensive chronic kidney disease with stage 5 chronic kidney disease or end stage renal disease; R07.89 Other chest pain; H54.40 Blindness, one eye, unspecified eye; E87.5 Hyperkalemia; E11.22 Type 2 diabetes mellitus with diabetic chronic kidney disease; Z99.2 Dependence on renal dialysis; Z79.4 Long term (current) use of insulin; F41.9 Anxiety disorder, unspecified; R01.1 Cardiac murmur, unspecified; I34.0 Nonrheumatic mitral (valve) insufficiency; I45.10 Unspecified right bundle-branch block
CPT/HCPCS: 36415; 71045-TC-FY; 78452-TC; 80048; 80053; 80061; 82550; 82962; 83036; 83721; 83735; 83880; 84100; 84484; 85025; 85027; 86704; 86706; 86708; 86803; 87340; 93005; 93010; 93017; 93306-TC; 99284-25; A9502; J1644